=== PATIENT | male | born 1960 | race Caucasian/White ===

== ENCOUNTER 2025-01-27 18:33 | Emergency (ER) | payer SELFPAY ==
[~2025-01-27] VITALS: Ht 177.8 cm; Wt 68.0 kg
[2025-01-27] MEDS ORDERED: NAPR-1009 PO (20:55)
[2025-01-27 21:47] VITALS: BP 120/78; O2SAT 99
== END 2025-01-27 21:48 | disposition home or self-care (01) ==
LOC: ER 18:51
DX: S80.02XA Contusion of left knee, initial encounter (principal); S83.8X2A Sprain of other specified parts of left knee, initial encounter; S93.492A Sprain of other ligament of left ankle, initial encounter; Y04.0XXA Assault by unarmed brawl or fight, initial encounter; Y93.89 Activity, other specified; Y92.89 Other specified places as the place of occurrence of the external cause; Y99.8 Other external cause status
CPT/HCPCS: 73600; A4606; A4663